=== PATIENT | male | born 1960 | race Caucasian/White ===

== ENCOUNTER 2021-03-08 05:30 | Day surgery (SDC) | payer OTHER ==
--- NOTE | 2021-02-21 11:31 | NUR ---
DOS:03-08-21 PT HAS 3 TO 5 STEPS TO GET INTO HIS HOME DEPENDING ON WHICH ENTERANCE HE USES. HAS A FWW HAS TALL TOILETS IN HIS HOME HAS A WALK IN SHOWER WITH [employer] BARS, WILL GET A SHOWER CHAIRE IF NEEDED PROVIDED [facility] CLOSET HANDOUT. DAUGHTER WILL GET PT TO APPOINTMENTS AND PHYSICAL THERAPY OR USE A TAXIE IF NEEDED.
[~2021-03-08] VITALS: Ht 180.3 cm; Wt 113.6 kg
[~2021-03-08 05:30] MED LIST: HYDROXYZINE HCL25 MG PO; PROPRANOLOL HCL20 MG PO; VITAMIN D325 MC2 PO
[2021-03-08] MEDS ORDERED: IRON240 MG PO (05:57)
[2021-03-08] MEDS ORDERED: VITAMIN C100 MG PO (05:57)
[2021-03-08] MEDS ORDERED: MULTI-VITAMIN1 EACH PO (05:58)
[2021-03-08] MEDS ORDERED: XARELTO10 MG PO (08:42)
[2021-03-08] MEDS ORDERED: SENNA LAX8.6 MG PO (08:43)
[2021-03-08] MEDS ORDERED: OXYCODONE HCL5 MG PO (08:43)
[2021-03-08] MEDS ORDERED: DICLOFENAC SODI75 MG PO (08:43)
[2021-03-08] MEDS ORDERED: GABAPENTIN600 MG PO (08:43)
[2021-03-08] MEDS ORDERED: ACETAMINOPHEN500 MG PO (08:43)
--- NOTE | 2021-03-08 09:15 | NUR ---
03/08/21 0915 Amelia Shea 0852 PT ARRIVED IN PACU NON RESPONSIVE TO NOXIOUS STIMULI WITH OPA IN PLACE. 0904 PT REACTIVE. OPA REMOVED. 904 PELVIS XRAY DONE. 909 CRYO CUFF PLACED ON R HIP. NO C/O'S. 0915 ANESTHESIA AT BEDSIDE TALKING WITH PT.
--- NOTE | 2021-03-08 09:49 | NUR ---
0935: PT ARRIVES BACK TO DS TREATMENT RM FROM PACU DROWSY. PT AROUSES TO VERBAL STIMULATION AND IS ABLE TO ANSWER COMMANDS. PT DENIES PAIN OR NAUSEA, DENIES WATER AT THIS TIME- AT BEDSIDE. PT DAUGHTER AT BEDSIDE, ASKS MANY QUESTIONS. CALL LIGHT WITHIN REACH, DC CRITERIA EXPLAINED TO PT AND DAUGHTER.
--- NOTE | 2021-03-08 10:53 | NUR ---
1038: PT RESTING IN BED WITH DAUGHTER AT BEDSIDE. PT TOLERATES CRACKER AND WATER WITH NO COMPLAINTS OF NAUSEA. PT ABLE TO MOVE LEFT FOOT AND RIGHT TOES AT THIS TIME, STATES SOME TINGLING ON RLE. CALL LIGHT WITHIN REACH.
--- NOTE | 2021-03-08 12:09 | NUR ---
1140: PT RESTING IN BED, PUMPING FEET. SPINAL HAS RESOLVED AT THIS TIME. PT STATES FEELING TINGLING ON RIGHT SIDE. PT PROVIDED INCENTIVE SPIROMETER AND IS ABLE TO DEMONSTRATE USE AFTER EDUCATION, ENCOURAGED TO USE 3-5 TIMES EVERY 2 HOURS. LUNCH ORDERED FOR PT. PT STATES HE WOULD LIKE TO TRY TO USE BATHROOM AROUND 1230. DAUGHTER REMAINS AT BEDSIDE, CALL LIGHT WITHIN REACH.
--- NOTE | 2021-03-08 15:13 | NUR ---
[id number]: THIS RN BACK FROM LUNCH, CHECKS IN ON PT. PT WOULD LIKE TO TRY TO VOID. SECOND RN IN TO ASSIST. PT UNABLE TO LIFT RIGHT LEG OFF OF BED TO STAND, NO TONE IN QUAD MUSCLE NOTED. PT ABLE TO PIVOT FROM STRETCHER TO BEDSIDE COMMODE. SMALL AMOUNT OF URINE NOTED ON LINENS AND PT DRIBBLES URINE ON FLOOR TO COMMODE. PT SITS ON COMMODE FOR APPROX 5 MINUTES AND FINALLY STATES, "I DON'T THINK I AM ABLE TO PEE." WHEN PT STANDS TO TRANSFER BACK TO STRETCHER APPROX 75-100 MLS YELLOW URINE NOTED IN COMMODE. PT SURPRISED THERE WAS URINE, STATES NOT BEINIG ABLE TO FEEL ANYTHING. PT BLADDER SCANNED AT THIS TIME OF APPROX 874 MLS AND CATHETER IS PLACED. BLADDER EMPTIED OF APPROX 775 MLS ORANGE COLORED URINE. [id number]: DR. PIERRE NOTIFIED OF PT STATUS, VERBALLY ORDERS FOR PT TO RECEIVE FLOMAX; SEE EMAR. [id number]: FRANKI, PHYSICAL THERAPIST IN TO SEE PT. PT ABLE TO DO SOME EXCERCISES BUT REMAINS UNSTABLE ON RIGHT LEG DUE TO WEAK QUAD MUSCLE. FRANKI WILL RETURN AROUND 1630 TO ASSESS PT AGAIN. PT ENC TO DO EXERCISES IN BED PROVIDED BY FRANKI. PT DAUGHTER REMAINS AT BEDSIDE.
--- NOTE | 2021-03-08 17:01 | NUR ---
[id number]: FRANKI, PHYSICAL THERAPY BACK INTO PT ROOM TO ASSESS. PT STANDS AT SIDE OF BED WITH 2 PERSON ASSIST AND USE OF GAIT BELT AND WALKER. PT RIGHT LEG FAWN WITH EXERCISES AND FRANKI DEEMS PT UNSAFE TO DC HOME AT THIS TIME. THIS RN ATTEMPTS TO CONTACT DR. PIERRE, NO ANSWER. MANAGER OF PROJECT MANAGEMENT NOTIFIED OF PT STATUS AND STATES THAT PT MAY GO TO RM 108. 1700: DR. PIERRE CALLED AGAIN, NOTIFIED OF PT NOT MEETING CRITERIA TO DC HOME AND THAT PT IS GOING TO RM 108. DR. PIERRE VERBALLY AGREES.
--- NOTE | 2021-03-08 17:11 | NUR ---
[id number]: [facility] IN [place] UNABLE TO FILL PT MEDICATIONS DUE TO "SYSTEM FAILURE" AND PT WOULD LIKE MEDICATION SENT TO -[facility] IN [place] INSTEAD. INFORMATION RELAYED TO DR. PIERRE WHO CONTACTS HIS OFFICE TO RESUBMIT E-SCRIPT TO NEW PHARMACY.
--- NOTE | 2021-03-08 17:13 | NUR ---
[id number]: PT UP TO BEDSIDE COMMODE WITH 2 RN ASSIST. PT CONT TO HAVE WEAK MUSCLE TONE IN RIGHT QUAD, BUT IS ABLE TO PIVOT ON LEFT FOOT. PT UNABLE TO VOID AT THIS TIME AND BACK INTO STRETCHER WITH 2 RN ASSIST. PT BLADDER SCANNED AT THIS TIME, 0 MLS AFTER MULTIPLE TRIES. PT DRINKING ICED TEA AND WATER.
--- NOTE | 2021-03-08 17:45 | NUR ---
Pt arrives to med surg unit at 1745 from day surgery via stretcher. Alert and oriented, VSS. Dressing to R hip C/D/I, ABD with steri strips and on-Q pump in place set to 4. Pt reports no pain, slight numbness in R leg. Cryo cuff in place. Teds and SCDs on. Pt tolerating PO intake. Assessment and hx complete. Pt's daughter in room, engaged in care and attentive to patient. Oriented to room and unit, call light in reach. Will continue plan of care.
--- NOTE | 2021-03-08 17:50 | NUR ---
PT TRANSFERRED TO MED SURG RM 108 VIA STRETCHER. VERBAL REPORT GIVEN.
--- NOTE | 2021-03-08 20:58 | NUR ---
PATIENT PIVOTED ONTO BEDSIDE COMMODE WITH 2PA AND FWW. PATIENT TOLERATED ACTIVITY WELL, BACK TO BED EASILY. ASSISTANT CHIEF NURSING OFFICER REPLACED ICE IN CRYO MACHINE AND REAPPLIED THE ICE PACK AFTER PATIENT RETURNED BACK TO BED. ASSISTANT CHIEF NURSING OFFICER ALSO PROVIDED FRESH ICE WATER. CALL LIGHT IN REACH AND NO FURTHER NEEDS AT THIS TIME.
--- NOTE | 2021-03-08 21:29 | NUR ---
PM MEDS GIVEN. PATIENT IS VOIDING NOW, BUT URINE IS DARK AND CONCENTRATED. PATIENT MOVING RIGHT TOES AND FLEXING HIS RIGHT FOOT NOW AND SAYS HIS FEELING IS COMING BACK AND HIS RIGHT LEG IS GETTING STRONGER. PATIENT SAYS HIS PAIN IS 0.5/10. PATIENT'S ICE WATER REFILLED AND CALL LIGHT IS IN REACH.
--- NOTE | 2021-03-08 23:28 | NUR ---
2300 ANTIBIOTC GIVEN. PATIENT DENIES PAIN. PATIENT WANTS TO GO TO SLEEP. LIGHTS TURNED DOWN. FOOT PUMPS AND CRYO CUFF IN [place]. CALL LIGHT IS IN REACH.
--- NOTE | 2021-03-09 01:30 | NUR ---
PATIENT RESTING QUIETLY IN SEMI-FOWLERS POSITION. RESPIRATIONS ARE REGULAR AND EVEN, EYES CLOSED, CALL LIGHT IN REACH.
--- NOTE | 2021-03-09 02:49 | NUR ---
PATIENT RECEIVED 2AM MEDS AND HAS GOT UP TO THE BEDSIDE COMMODE AND VOIDED AND BACK TO BED WITH NO STAFF ASSISTANCE AND USING A FWW AND BEDSIDE. ICEWATER REFILLED AND CRYOCUFF ICE REFILLED. NO OTHER NEEDS AT THIS TIME. CALL LIGHT IS IN REACH.
--- NOTE | 2021-03-09 04:30 | NUR ---
PATIENT RESTING QUIETLY IN BED, EYES CLOSED, RESPIRATIONS REGULAR AND EVEN, CALL LIGHT IN REACH. PATIENT FINALLY APPEARS TO BE GETTING A LITTLE SLEEP. PATIENT'S DAUGHTER ASLEEP ON THE COUCH.
--- NOTE | 2021-03-09 06:56 | NUR ---
AUTO SPECIALTY SERVICES MANAGER ASSISTED PATIENT BACK TO BED FROM BATHROOM, SBA WITH FWW. PATIENT REQUEST THAT THE CRYO NOT BE PUT ON, RN WAS NOTIFIED. CALL LIGHT IN REACH AND NO FURTHER NEEDS AT THIS TIME.
--- NOTE | 2021-03-09 07:37 | NUR ---
MANJEET REPLACED ICE IN THE CRYO MACHINE. ICE IS APPLIED TO THE R HIP.
--- NOTE | 2021-03-09 07:44 | NUR ---
SHIFT REPORT FROM OLIVER DOTSON. PT SITTING UP IN BED ALERT AND ORIENTED. HE VERBALIZED INTEREST IN DISCHARGING SOON POSSIBLE TODAY. TALKED WITH PT ABOUT WORKING WITH PHYSICAL THERAPY AND WILL NEED TO ROUND.
[2021-03-09] MEDS ORDERED: LOW DOSE ASPIRI81 MG PO (08:49)
--- NOTE | 2021-03-09 08:49 | NUR ---
PT REPORTS NO PAIN AT THIS TIME, JUNELAINE GARCIAJoel IN BED A/O DAUGHTER AT BEDSIDE.
--- NOTE | 2021-03-09 08:54 | NUR ---
MED REC COMPLETE
[2021-03-09] MEDS ORDERED: PROPRANOLOL HCL20 MG PO (08:58)
--- NOTE | 2021-03-09 09:38 | NUR ---
NOTIFIED BY PHARMACY STAFF THAT PATIENT IS FEELING UNWELL. UPON ENTERING ROOM, PATIENT LYING IN BED, DIAPHORETIC AND PALE. STATES HE FEELS HE MAY PASS OUT, FEELING CAME ON SUDDENLY. VITALS OBTAINED, HYPOTENSION NOTED, TAKEN MANUALLY WITH SAME READING. PATIENT STATES NOW THE FEELING HAS PASSED AND HE IS FEELING BETTER.
--- NOTE | 2021-03-09 09:50 | NUR ---
PT REPORTS FEELING BETTER FROM NEAR SYNCOPAL EPISODE. B/P NOW 119/62, HR 64. EKG IS COMPLETE. STAT LABS ORDERED, CALLED LAB.
--- NOTE | 2021-03-09 09:56 | NUR ---
Patient has begun feeling worse. BP is lower at this time than it was previously. Dr. Eldridge notified by this nurse. Telephone orders Dr. Eldridge/Devante Barrientos RN, for STAT 12-lead EKG, CBC, BMP and hospitalist consult. Dr. Heredia notified by NILA Foster. RT notified of need for EKG by NILA Lindsey. Lab staff notified by this nurse at this time.
--- NOTE | 2021-03-09 10:21 | NUR ---
Notified lab of need for STAT labs, as they have not yet been seen in room to obtain specimens.
--- NOTE | 2021-03-09 11:05 | NUR ---
It was my pleasure to meet with Mr. Reyes this morning regarding the care he has received here at the hospital. Daniel reports that he is happy with the care that he has received. Daniel stated: "The girls have been beyond great." Pre-operatively Daniel felt like his education was good, and prepared him for his surgery. He also acknowledged that he felt well informed while in the day surgery department prior to going to surgery. He added: "You guys have done really well, absolutely great." Mr. Reyes's daughter was in the room with him when we were talking and she did not express any concerns during our visit.
--- NOTE | 2021-03-09 11:12 | NUR ---
PT RESTING IN BED HEAD SLIGHTLY ELEVATED FOR COMFORT. HE REPORTS HE IS FEEL BETTER, HE DOES HAVE SOME MILD SHAKING OF HIS UPPER EXTREMETIES POST 500ML BOLUS, WARM BLANKETS PROVIDED, V/S STABLE TEMP 97.4 F ORAL.
--- NOTE | 2021-03-09 12:11 | NUR ---
Spoke with pt and daughter, Ade. [place] He is usually healthy and active. Stayed following Rhip placement as he could not feel or move leg due to anesthesia. Feeling has returned to day and he was able to ambulate to the bathroom without problem. Plans on going home with assists from daughters. DME in place from [facility] office. Pt denies any needs. Daughter will transport him home.
--- NOTE | 2021-03-09 13:19 | NUR ---
PT AMBULATED FULL LAP AROUND THE MED/SURG UNIT WITH FWW AND STANDBY. HE TOLERATED ACTIVITY WELL, ORTHOSTATIC V/S DONE AND REPORTED TO
--- NOTE | 2021-03-09 14:26 | NUR ---
CALLED TO UPDATE ON PT STATUS AND 'S CONSULT. SAID OK TO DISCHARGE.
--- NOTE | 2021-03-09 14:37 | NUR ---
DISCHARGE EDUCATION AND DISCHARGE PACKET GIVEN BY CHARGE NICK DOTSON.
--- NOTE | 2021-03-11 08:59 | EKG ---
[facility] [address] [place] [address] Signed Normal sinus rhythm Normal ECG No previous ECGs available Confirmed by ERICK RODRIGUES MD ([id number]) on 03/11/2021 8:59:22 AM Electronically Signed By: ERICK RODRIGUES MD 03/11/21 0859 PATIENT NAME: TAMMIE ROSAS Electrocardiogram DATE OF : 58 PHYSICIAN: ERICK RODRIGUES MD REPORT #: [id number] REPORT IS CONFIDENTIAL AND NOT TO BE RELEASED WITHOUT AUTHORIZATION
--- NOTE | 2021-04-05 14:12 | OR ---
[facility] [address] [place], [place] [address] Signed DATE OF OPERATION: 03/08/2021 SURGEON: Maryanne Eldridge MD PREOPERATIVE DIAGNOSIS: Severe degenerative joint disease of right hip. POSTOPERATIVE DIAGNOSIS: Severe degenerative joint disease of right hip. PROCEDURE PERFORMED: Right total hip arthroplasty. AIRBRUSH ARTIST TECHNICAL: Jena Ramires PA-C. Jena was present and critical for all portions of procedure. ANESTHESIA: Spinal. BLOOD LOSS: 160 mL. IMPLANTS: [place] Accolade II stem size 4, -2.5 x 36 head and a 56 mm cup. BRIEF HISTORY: Daniel is a 60-year-old gentleman with progressive worsening of osteoarthritis in his hip. He had undergone nonoperative treatment without substantial relief. Risks and benefits of operative intervention were discussed with him and he elected to proceed. DESCRIPTION OF PROCEDURE: Once consent was obtained, he was taken to the operating room after adequate anesthesia. He was placed in left lateral decubitus position, all downside pressure points were well padded. Axillary roll was placed. The hip was prepped and draped in the standard sterile fashion. The hip was approached from the anterior lateral aspect. This was done through a 6 inch incision, carried through skin and subcutaneous tissue. The IT band was split longitudinally and the vastus lateralis was split from the tip of the trochanter distally and elevated in a subperiosteal manner around to the level of the lesser trochanter. The gluteus medius was split from the trochanter to the acetabular Electronically Signed By: MARYANNE ELDRIDGE MD 03/10/21 0656 Electronically Signed By: MARYANNE ELDRIDGE MD 04/07/21 0709 PATIENT NAME: DANIEL ROSAS OPERATIVE REPORT DATE OF : 58 REPORT #: [id number] PHYSICIAN: MARYANNE ELDRIDGE MD PCP: JOSE VITAL NP REPORT IS CONFIDENTIAL AND NOT TO BE RELEASED WITHOUT AUTHORIZATION [facility] [address], [place] [address] Signed rim. The gluteus minimus and capsule were split and elevated off the saddle. The hip was then dislocated and the neck cut was made one fingerbreadth above the lesser trochanter. The femoral head was passed off the table and saved in the back table. The periacetabular soft tissue was then removed and the acetabulum was reamed starting with a 52 and going up to a 56. The remaining soft tissue problems were removed. The cup was then impacted in 20 degrees of anteversion and 45 degrees of abduction. The liner was then impacted. Once this accomplished, attention was then turned to the proximal femur. Proximal femur was opened using a cookie cutter followed by the Brent awl. The lateralize reamer was then used. We then sequentially broached from 1 up to a 4, the 4 was found to be quite well fitting, was left in position. High offset neck and -2.5 head was placed. The hip was reduced, leg lengths were found to be equal. He had excellent motion with 100 degrees of flexion, internal and external rotation 30 degrees. There was no impingement on my finger. The hip was then dislocated and trial was removed. The final stem was impacted to the same level as the broach. The head was placed on it after cleaning the trunnion. The hip was again reduced, taken through range of motion and was found to be same. The wound was then copiously irrigated with normal saline under pulse lavage, total 3 L was used. At the group home point, we did soak the hip with 500 mL of Irrisept. The On-Q pain pump was placed intracapsularly and the capsule was closed using #1 Vicryl. The vastus and IT band layers were closed independently using #2 Stratafix, subcutaneous tissue with #0 Stratafix, and the skin with a 3-0 Stratafix. Wound was dressed with Steri-Strips, Acticoat 7 dressing. He was awakened, taken to the recovery room in satisfactory condition. All sponge, needle, and instrument counts were correct. Maryanne Eldridge MD BA/MODL /[id number] Copies: ~ Electronically Signed By: MARYANNE ELDRIDGE MD 03/10/21 0656 Electronically Signed By: MARYANNE ELDRIDGE MD 04/07/21 0709 PATIENT NAME: DANIEL ROSAS OPERATIVE REPORT DATE OF : 58 REPORT #: [id number] PHYSICIAN: MARYANNE ELDRIDGE MD PCP: JOSE VITAL NP REPORT IS CONFIDENTIAL AND NOT TO BE RELEASED WITHOUT AUTHORIZATION
== END 2021-03-09 14:33 | disposition home or self-care (01) ==
LOC: DS 05:30 → MS 05:30 → DS 06:45 → MS 16:57 → DS 03-09 14:33
PROVIDERS: ATTEND Specialist
PROC: 0SR901A Replacement of Right Hip Joint with Metal Synthetic Substitute, Uncemented, Open Approach (ICD-10-PCS; principal; 2021-03-08 06:45)
DX: M16.11 Unilateral primary osteoarthritis, right hip (principal); G89.18 Other acute postprocedural pain; R55 Syncope and collapse; I10 Essential (primary) hypertension; F41.9 Anxiety disorder, unspecified; E66.01 Morbid (severe) obesity due to excess calories; Z88.1 Allergy status to other antibiotic agents; Z88.2 Allergy status to sulfonamides; Z88.8 Allergy status to other drugs, medicaments and biological substances
CPT/HCPCS: 01214; 64447; 72170; 76942; 80048; 85025; 93005; 93010; 97110; 97161; C1713; C1776; J0690; J0735; J1100; J1885; J2001; J2250; J2405; J2704; J2765; J2795; J3010; J7120; J7121

== ENCOUNTER 2022-05-04 10:35 | Day surgery (SDC) | payer OTHER ==
[~2022-05-04] VITALS: Ht 180.3 cm; Wt 113.6 kg
[~2022-05-04 10:35] MED LIST changes: +ACETAMINOPHEN500 MG PO; +DICLOFENAC SODI75 MG PO; +GABAPENTIN600 MG PO; +IRON240 MG PO; +LOW DOSE ASPIRI81 MG PO; +MULTI-VITAMIN1 EACH PO; +OXYCODONE HCL5 MG PO; +SENNA LAX8.6 MG PO; +VITAMIN C100 MG PO; +XARELTO10 MG PO
--- NOTE | 2022-05-04 14:23 | NUR ---
05/04/22 1423 Jerrell Crane OPA REMOVED AT 1414 DURING REPORT PATIENT RESPONDS TO STIMULATION
[2022-05-04] MEDS ORDERED: MOTRIN IB200 MG PO (14:26)
[2022-05-04] MEDS ORDERED: PERCOCET 7.5-31 EACH PO (14:27)
[2022-05-04] MEDS ORDERED: TYLENOL EXTRA500 MG PO (14:27)
--- NOTE | 2022-05-04 14:48 | NUR ---
PT BACK TO DS FROM PACU ALERT AND AWAKE DENIES PAIN OR NAUSEA, LT FOOT ELEVATED ABOVE LEVEL OF HEART WITH PILLOWS. PT TAKING SIPS OF WATER TOLERATES WELL.
--- NOTE | 2022-05-04 15:05 | NUR ---
PT EATING CRACKERS AND DRINKING WATER TOLERATES WELL.
--- NOTE | 2022-05-04 15:44 | NUR ---
PT REPORTS READINESS TO GO HOME DISCHARGE INSTRUCTIONS GIVEN TO PT HE VOICED UNDERSTANDING.
--- NOTE | 2022-05-04 15:45 | NUR ---
PT ABLE TO DRESS HIMSELF, DRESSING CLEAN DRY AND INTACT.
--- NOTE | 2022-05-04 15:54 | NUR ---
PT UP TO BATHROOM VIA WHEELCHAIR HE WAS ABLE TO VOID A GOOD AMOUNT OF CLEAR YELLOW URINE.
--- NOTE | 2022-05-04 15:55 | NUR ---
PT DENIES PAIN OR NAUSEA. HE WAS ABLE TO PUT HIS SNEECKER ON THE OPERATIVE FOOT,HE DID NOT WANT TO LEAVE THE HOSPITAL WITHOUT A SHOE ON.
--- NOTE | 2022-05-08 17:52 | OR ---
[facility] [address] [place], [place] [address] Signed DATE OF OPERATION: 05/04/2022 SURGEON: Cheko Wong MD PREOPERATIVE DIAGNOSIS: Left lateral dorsum of forefoot cystic mass. POSTOPERATIVE DIAGNOSIS: Left lateral forefoot ganglion cyst 2.5 cm. PROCEDURE: Excision of left forefoot ganglion cyst. ANESTHESIA: General, LMA and local, Cheko Santillan and Amanda Kennedy CRNA and local 5 mL of 0.25% Marcaine with epinephrine. INDICATION: This 61-year-old white man is a patient of MICKIE Masterson and found to have a left forefoot soft tissue mass nodule approximately 2.5 cm in size. He underwent ultrasound of the lesion on February 02, 2022 and plain x-rays on December 04 soft tissue left lateral forefoot showed probable cystic lesion consistent with ganglion. I have recommended excision of the lesion, having reviewed other options including aspiration and simple observation. Notably, the lesion is quite uncomfortable for him particularly regarding his footwear. He is not known to have had forefoot fracture or osteoarthritis particularly. He understands the risk of the procedure including, but not limited to, bleeding, infection, recurrence, and other unforeseen complications. FINDINGS: With use of tourniquet, good visualization of the anatomy was easily accomplished. Branches of the sural nerve in the lateral forefoot were identified and preserved. The lesion was clearly consistent with a ganglion cyst emanating from the cuneiform bones of the lateral forefoot. The stalk associated with the cyst was ligated and divided and the joint space injected with 40 mg of Kenalog steroid. There were no complications. DESCRIPTION OF PROCEDURE: The patient was brought to the operating room, given a general anesthetic by LMA technique. Preoperative antibiotic Ancef was used. Sequential compression device was applied to the right leg. The lesion of the left lateral forefoot on the dorsum was easily identified. The foot and lower extremity were elevated and a tourniquet placed Electronically Signed By: CHEKO WONG MD 05/08/22 1752 PATIENT NAME: TAMMIE ROSAS OPERATIVE REPORT DATE OF : 58 REPORT #: [id number] PHYSICIAN: CHEKO WONG MD PCP: JOSE VITAL NP REPORT IS CONFIDENTIAL AND NOT TO BE RELEASED WITHOUT AUTHORIZATION [facility] [address], [place] [address] Signed above the knee. I personally performed exsanguination of the extremity with a large as marked bandage. The tourniquet was applied to 300 mmHg. The forefoot and leg were then prepared with a Betadine solution and draped sterilely. A linear incision was made in the radial direction directly over the soft tissue mass. Dissection was carried through the dermis sharply. Immediately noted were branches of the sural nerve, which were avoided. They were retracted out of the way using Briseyda retractors. Quite clearly, the lesion in question was a ganglion cyst. It was meticulously dissected free from surrounding soft tissue down to the fascial coverings of the cuneiform bones. It was not associated with a tendon proper. This was ultimately dissected down with a stalk that emanated from the joint space. The stalk was secured with a hemostat and divided. The stalk was secured with a 2-0 Vicryl suture. Palpation revealed that the stalk emanated from a joint space. The joint space was then injected with 1 mL of Kenalog totaling 40 mg. The wound was then closed with interrupted 3-0 Vicryl Steri-Strips were applied as was an Acticoat dressing. A Flexicon was applied as was secondarily an 6-inch Emanuel wrap. Pressure was applied to the operative site and the tourniquet was taken down. Total tourniquet time was 26 minutes. Pressure was applied to the operative site and he was ultimately transferred to the stretcher and taken to the recovery room in good condition. BLOOD LOSS: Minimal. COMPLICATIONS: None. MD MAKI Mcintyre/MODL /[id number] Electronically Signed By: CHEKO WONG MD 05/08/22 1752 PATIENT NAME: TAMMIE ROSAS OPERATIVE REPORT DATE OF : 58 REPORT #: [id number] PHYSICIAN: CHEKO WONG MD PCP: JOSE VITAL NP REPORT IS CONFIDENTIAL AND NOT TO BE RELEASED WITHOUT AUTHORIZATION [facility] [address] [place] [address] [place], [place] [address] Signed Copies: ~ Electronically Signed By: CHEKO WONG MD 05/08/22 1752 PATIENT NAME: TAMMIE ROSAS ALAN OPERATIVE REPORT DATE OF : 58 REPORT #: [id number] PHYSICIAN: CHEKO WONG MD PCP: JOSE VITAL NP REPORT IS CONFIDENTIAL AND NOT TO BE RELEASED WITHOUT AUTHORIZATION
--- NOTE | 2022-05-08 18:08 | PATH ---
[facility] [address] [place], [place] [address] Signed SPECIMEN(S): A DORSUM LEFT FOOT SPECIMEN SOURCE: A. DORSUM LEFT FOOT CLINICAL HISTORY: Left foot dorsal ganglion cyst. Excision of left foot soft tissue mass. FINAL PATHOLOGIC DIAGNOSIS: Left foot, dorsum, excision: - Features consistent with clinical impression of ganglion cyst. NRT:cml:C2NR MICROSCOPIC EXAMINATION: Histologic sections of all submitted blocks are examined by light microscopy. These findings, together with the gross examination, support the pathologic diagnosis. GROSS DESCRIPTION: The specimen, labeled "WM, left foot mass," received in formalin and consists of irregularly shaped, hay soft tissue fragment that measures 1.5 x 1 x 0.5 cm. The outer surface specimen is quadrisected. Entirely submitted in cassette (A1). KV (under the direct supervision of a pathologist) The Gross Description was prepared using a voice recognition system. The report was reviewed for accuracy; however, sound-alike word errors, addition and/or deletions may occur. If there is any question about this report, please contact Client Services. PERFORMING LABORATORY: The technical component was performed by [facility], [address] [place] [id number] (CLIA# [id number]). Professional interpretation was performed by [facility], [address] [place] [address], [place] [address] (CLIA# [id number]). Diagnostician: Anabela Swan MD Pathologist Electronically Signed 05/08/2022 PATIENT NAME: TAMMIE ROSAS PATHOLOGY DATE OF : 58 REPORT #: [id number] PHYSICIAN: LEAH SHEEHAN PCP: JOSE VITAL NP REPORT IS CONFIDENTIAL AND NOT TO BE RELEASED WITHOUT AUTHORIZATION
== END 2022-05-04 15:54 | disposition home or self-care (01) ==
LOC: DS 10:35
PROVIDERS: ATTEND Surgery
PROC: 0LBW0ZZ Excision of Left Foot Tendon, Open Approach (ICD-10-PCS; principal; 2022-05-04 13:45)
DX: M67.472 Ganglion, left ankle and foot (principal); I10 Essential (primary) hypertension; Z96.649 Presence of unspecified artificial hip joint; Z88.1 Allergy status to other antibiotic agents
CPT/HCPCS: 01470; J0690; J1100; J1644; J1885; J2250; J2405; J2704; J2765; J3010; J3301; J7121